=== PATIENT | male | born 1955 | race Caucasian/White ===

== ENCOUNTER → 2018-08-31 | Outpatient (CLI) | payer SELFPAY | LOC: CARD 12:27 | PROVIDERS: ATTEND Internal Medicine Cardiovascular Disease | DX: I10 Essential (primary) hypertension (principal); R42 Dizziness and giddiness; K21.9 Gastro-esophageal reflux disease without esophagitis; R06.02 Shortness of breath | CPT/HCPCS: 93306 ==

== ENCOUNTER → 2018-09-26 | Outpatient (CLI) | payer OTHER ==
[~2018-09-26] MED LIST: CATHETER FLUSH 10 ML SYR IV PRN; REGADENOSON 0.4 MG/5 ML SYR (LEXISCAN) IV ONE
[2018-09-26 12:48] VITALS: BP 139/81
[2018-09-26 13:04] VITALS: BP 164/89
--- NOTE | 2018-09-26 20:06 | STRESS TEST ---
DATE OF SERVICE: 09/26/2018 LEXISCAN STRESS TEST REPORT Baseline heart rate is 61, baseline blood pressure 139/80. Baseline EKG is sinus rhythm with no ischemic changes. In summary, the patient was injected with 10.77 mCi of technetium-99 Myoview and the resting images were obtained. Then, the patient received 0.4 mg of Lexiscan, followed by 30.8 mCi of technetium-99 Myoview. Throughout the test, there were no EKG changes. The resting and stress images were reviewed and compared in the short axis, horizontal long axis, and vertical long axis views. Review of the images showed diaphragmatic attenuation with mild decrease uptake at the mid to apical inferior wall with subtle reversibility, probably due to the diaphragmatic attenuation. SSS is 4, SDS is 4, TID value 0.99. On the gated images, the left ventricle appeared to be in normal size with normal contractility. Calculated ejection fraction 55%. IN CONCLUSION: 1. The patient tolerated Lexiscan well. 2. Diaphragmatic attenuation with typical male pattern with no significant ischemia or infarction on SPECT images. 3. Normal left ventricular size with normal contractility. Calculated ejection fraction 55%. Job ID: [id number] DocumentID: [id number] Dictated Date: 09/26/2018 17:30:59 Commercial Photographer Date: 09/26/2018 20:05:30 Dictated By: ZACH ZELAYA MD
== END ==
LOC: CARD 10:45
PROVIDERS: ATTEND Internal Medicine Cardiovascular Disease
DX: R07.9 Chest pain, unspecified (principal); I10 Essential (primary) hypertension; E78.2 Mixed hyperlipidemia; R42 Dizziness and giddiness; R06.09 Other forms of dyspnea
CPT/HCPCS: 78452; 93017